=== PATIENT | male | born 1965 | race Caucasian/White ===

== ENCOUNTER 2021-08-11 15:40 | Emergency (ER) | payer OTHER ==
[~2021-08-11] VITALS: Ht 162.6 cm; Wt 90.7 kg
[2021-08-11] MEDS ORDERED: METFORMIN HCL500 M3 PO (15:58)
[2021-08-11] MEDS ORDERED: LISINOPRIL10 MG PO (15:58)
[2021-08-11] MEDS ORDERED: ERYTHROMYCIN E3.5 G3 OPHTHALMIC (16:22)
[2021-08-11] MEDS ORDERED: NORCO5 PO ×2 (16:22→16:27)
[2021-08-11 16:37] VITALS: BP 183/98
== END 2021-08-11 16:39 | disposition home or self-care (01) ==
LOC: M.ERS 15:40
DX: S05.02XA Injury of conjunctiva and corneal abrasion without foreign body, left eye, initial encounter (principal); E11.9 Type 2 diabetes mellitus without complications; I10 Essential (primary) hypertension; Z79.899 Other long term (current) drug therapy; X58.XXXA Exposure to other specified factors, initial encounter; Y93.89 Activity, other specified; Y92.89 Other specified places as the place of occurrence of the external cause; Y99.8 Other external cause status

== ENCOUNTER 2021-09-29 15:22 | Emergency (ER) | payer OTHER ==
[~2021-09-29] VITALS: Ht 165.1 cm; Wt 89.8 kg
[~2021-09-29 15:22] MED LIST: ERYTHROMYCIN E3.5 G3 OPHTHALMIC; LISINOPRIL10 MG PO; METFORMIN HCL500 M3 PO; NORCO5 PO
[2021-09-29] MEDS ORDERED: HUMALOG MI100 UNIT/1 SUBQ (15:37)
[2021-09-29 16:06] LABS: INFLUENZA A ANTIGEN Negative (Negative); INFLUENZA B ANTIGEN Negative (Negative)
[2021-09-29] MEDS ORDERED: TESSALON PERLE100 MG PO (17:12)
[2021-09-29] MEDS ORDERED: APAP W/CODEINE1 TA2 PO (17:12)
[2021-09-29] MEDS ORDERED: PROMETHAZI6.25 MG/5 PO (17:12)
[2021-09-29] MEDS ORDERED: MEDROLDOSEPACK PO (17:12)
[2021-09-29] MEDS ORDERED: AMOXIL 875 MG875 M1 PO (17:12)
[2021-09-29 17:36] VITALS: BP 110/54
== END 2021-09-29 17:37 | disposition home or self-care (01) ==
LOC: M.ERS 15:22
PROVIDERS: Physician Assistant
DX: J06.9 Acute upper respiratory infection, unspecified (principal); Z20.822 Contact with and (suspected) exposure to COVID-19; K08.89 Other specified disorders of teeth and supporting structures; E11.9 Type 2 diabetes mellitus without complications; I10 Essential (primary) hypertension; Z79.899 Other long term (current) drug therapy